=== PATIENT | female | born 1985 | race Caucasian/White ===

== ENCOUNTER 2018-12-07 12:58 | Emergency (ER) | payer OTHER ==
[~2018-12-07] VITALS: Ht 170.2 cm; Wt 64.4 kg
== END 2018-12-07 15:29 | disposition home or self-care (01) ==
LOC: ER 12:58
DX: S80.02XA Contusion of left knee, initial encounter (principal); S90.32XA Contusion of left foot, initial encounter; W22.8XXA Striking against or struck by other objects, initial encounter; Y93.89 Activity, other specified; Y92.89 Other specified places as the place of occurrence of the external cause; Y99.8 Other external cause status